=== PATIENT | male | born 1960 | race Caucasian/White ===

== ENCOUNTER → 2016-11-15 | Outpatient (CLI) | payer BC | LOC: KOH-I 12:22 | DX: M79.661 Pain in right lower leg (principal); R60.0 Localized edema; I82.592 Chronic embolism and thrombosis of other specified deep vein of left lower extremity; I89.0 Lymphedema, not elsewhere classified; I80.01 Phlebitis and thrombophlebitis of superficial vessels of right lower extremity | CPT/HCPCS: 73562; 93970 ==

== ENCOUNTER 2020-11-23 08:16 | Emergency (ER) | payer BC, OTHER ==
[~2020-11-23 08:16] MED LIST: AUGMENTIN 875-1 EACH PO; BACTRIM DS TAB1 EACH PO; COZAAR 25MG TAB25 MG PO; CYANOCOBAL1000 MCG/1 INJ; GLUCOPHAGE XR750 MG PO; KEFLEX500 MG PO; LASIX20 MG PO; MIRALAX17 GM PO; MOBIC15 MG PO; NEXIUM40 MG PO; PROBIOTIC1 EAC1 PO; ROCEPHIN IM/I2000 MG IV; VIBRAMYCIN100 MG PO
[2020-11-23 10:08] LABS: HEMOGLOBIN 14.9 gm/dl (14.0-17.5); RED BLOOD COUNT 4.69 M/UL (4.20-5.50); WHITE BLOOD COUNT 2.1 K/UL (4.5-11.0)
[2020-11-23 10:33] LABS: BUN/CREATININE RATIO 18 (0-10)
[2020-11-23] MEDS ORDERED: TORADOL 10 MG T10 MG PO (13:47)
[2020-11-23] MEDS ORDERED: ZOFRAN ODT 4 MG4 MG PO (13:47)
== END 2020-11-23 14:09 | disposition home or self-care (01) ==
LOC: ER1 08:16
PROVIDERS: Nurse Practitioner
DX: U07.1 COVID-19 (principal); M25.552 Pain in left hip; M25.551 Pain in right hip; I10 Essential (primary) hypertension; Z90.89 Acquired absence of other organs
CPT/HCPCS: 71045; 73522; 80053; 81001; 82550; 82553; 83605; 83690; 83735; 84484; 85025; 87040; 93005; 96374; 99284; J1885

== ENCOUNTER 2020-11-29 16:46 | Emergency (ER) | payer BC, OTHER ==
[~2020-11-29 16:46] MED LIST changes: -ELIQUIS 5 MG TAB5 MG PO; -ELIQUIS5 M1 PO
[2020-11-29 17:57] LABS: HEMOGLOBIN 14.3 gm/dl (14.0-17.5); RED BLOOD COUNT 4.42 M/UL (4.20-5.50); WHITE BLOOD COUNT 4.2 K/UL (4.5-11.0)
[2020-11-29 18:17] LABS: BUN/CREATININE RATIO 15 (0-10)
[2020-11-29] MEDS ORDERED: ELIQUIS5 M1 PO ×2 (19:21→19:27)
[2020-11-29] MEDS ORDERED: ELIQUIS 5 MG TAB5 MG PO (19:21)
== END 2020-11-29 19:38 | disposition home or self-care (01) ==
LOC: ER1 16:46
PROVIDERS: Student in an Organized Health Care Education/Training Program
DX: U07.1 COVID-19 (principal); I26.93 Single subsegmental thrombotic pulmonary embolism without acute cor pulmonale; I10 Essential (primary) hypertension; E11.9 Type 2 diabetes mellitus without complications; Z90.49 Acquired absence of other specified parts of digestive tract; Z90.89 Acquired absence of other organs
CPT/HCPCS: 36415; 80053; 82550; 82553; 83036; 83874; 83880; 84484; 85025; 85379; 99285; Q9967

== ENCOUNTER → 2020-11-29 | Outpatient (CLI) | payer BC, OTHER ==
[~2020-11-29] MED LIST changes: +ELIQUIS 5 MG TAB5 MG PO; +ELIQUIS5 M1 PO; +TORADOL 10 MG T10 MG PO; +ZOFRAN ODT 4 MG4 MG PO
[2020-11-29 14:34] LABS: HEMOGLOBIN 14.8 gm/dl (14.0-17.5); RED BLOOD COUNT 4.53 M/UL (4.20-5.50); WHITE BLOOD COUNT 4.6 K/UL (4.5-11.0)
[2020-11-29 15:06] LABS: BUN/CREATININE RATIO 15 (0-10)
== END ==
LOC: LAB 12:53
PROVIDERS: Emergency Medicine
DX: U07.1 COVID-19 (principal); R05 Cough; J20.9 Acute bronchitis, unspecified; R06.02 Shortness of breath
CPT/HCPCS: 36415; 80053; 83036; 83880; 85025; 85379

== ENCOUNTER 2021-03-22 09:06 | Emergency (ER) | payer BC ==
[~2021-03-22 09:06] MED LIST changes: +ELIQUIS 5 MG TAB5 MG PO; +ELIQUIS5 M1 PO
[2021-03-22 12:39] LABS: RED BLOOD COUNT 5.04 M/UL (4.20-5.50); WHITE BLOOD COUNT 3.8 K/UL (4.5-11.0)
[2021-03-22 12:56] LABS: BUN/CREATININE RATIO 12 (0-10)
[2021-03-22] MEDS ORDERED: VIBRAMYCIN100 MG PO (14:42)
== END 2021-03-22 16:39 | disposition home or self-care (01) ==
LOC: ER1 09:06
PROVIDERS: Physician Assistant
DX: L03.115 Cellulitis of right lower limb (principal); I10 Essential (primary) hypertension; Z20.822 Contact with and (suspected) exposure to COVID-19
CPT/HCPCS: 71045; 80053; 85025; 85379; 93971; 96374; 99284; J7070; U0002

== ENCOUNTER → 2021-12-04 | Outpatient (CLI) | payer BC | LOC: KOH-I 13:13 | DX: M25.551 Pain in right hip (principal) | CPT/HCPCS: 73502 ==